=== PATIENT | male | born 2000 | race American Indian/Alaskan Native ===

== ENCOUNTER 2019-01-03 17:55 | Emergency (ER) | payer OTHER ==
--- NOTE | 2019-01-03 18:20 | Emergency Department Report ---
Chief Complaint: Medical Clearance Stated Complaint: MEDICAL CLEARANCE Time Seen by Provider: 01/03/19 18:07 - HPI History of Present Illness: This is a 18-year-old male that presents with a medical clearance for plasma donation. Patient stated he had a concussion 3 months ago and was told that he needs a medical clearance before donating plasma. Patient denies any headache, neck pain, shortness of breathe, fever, chills, chest pain. Patient stated he is asymptotic and denies any complaints. Denies any allergies or PMH. - Exam Physical Exam: A/O x3. Neuro exam within normal limits. Good strength in upper and lower ext ermiteis. EMOI and PERRLA. MSE screening note: Focused history and physical exam performed. Due to findings the following was ordered: ED Medical Decision Making - Medical Decision Making This is a 18-year-old male that presents with a medical clearance note. Patient is asymptotic and within normal neuro exam. Patient stated he was not sure why he was told to come to the ED for this. I explained to the patient that this is nonmedical emergency and there is other cheaper routes he can take. Registration approached patient for nonmedical emergency copay but patient refused. Patient was given strict instructions to observe for signs and symptoms and was instructed to return to the ED as soon as possible if symptoms due occurs. At the time of discharge, patient understand to discharge instructions and agreed to the ED discharge plan of care. ED Disposition for MSE Clinical Impression: General medical exam Disposition: MED SCREENING EXAM-LEFT Is pt being admited?: No Does the pt Need Aspirin: No Condition: Stable Additional Instructions: Follow-up with a primary care doctor in 3-5 days or if symptoms worsen and continue return to the emergency department as soon as possible. Referrals: PRIMARY CAREMD [Referring] - 3-5 Days SHOSHANA MERRITT MD [Staff Physician] - 3-5 Days [facility] [Outside] - 3-5 Days [facility] [Outside] - 3-5 Days
== END 2019-01-03 18:43 | disposition left against medical advice (07) ==
LOC: ED 17:55
DX: Z00.00 Encounter for general adult medical examination without abnormal findings (principal)
CPT/HCPCS: 99282

== ENCOUNTER 2021-06-28 04:51 | Emergency (ER) | payer OTHER ==
[2021-06-28] MEDS ORDERED: IBUPROFEN 800 MG TAB PO ONE (05:38)
[2021-06-28] MEDS ORDERED: FAMOTIDINE 20 MG TAB PO ONE (05:38)
[2021-06-28] MEDS ORDERED: predniSONE 20 MG TAB PO ONE (05:38)
[2021-06-28] MEDS ORDERED: diphenhydrAMINE 25 MG CAP PO ONE (05:38)
[2021-06-28 05:40] VITALS: BP 134/80
--- NOTE | 2021-06-28 05:44 | Emergency Department Report ---
ED Allergic Reaction HPI - General Stated complaint: PAINFUL HAND RASH Source: patient Mode of arrival: Ambulatory Limitations: No Limitations - History of Present Illness Initial Comments: Patient is a 21-year-old -[place] male with no past medical history who presents to the ED with complaint of acute onset persistent bilateral itchy hands with erythematous maculopapular rashes and pain for the last 8 hours. 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 Patient states that the itching over his hands, mild swelling and redness have been persistent and especially worse in the last 4 hours. Patient states that she is unable to sleep because of persistent pain and itchy hands. Patient denies dizziness, syncope, swollen lips or tongue, swollen throat, dysphagia, dysphonia, cough, wheezing, chest tightness, chest pain, abdominal pain, nausea, vomiting, diarrhea or facial pain, fever and chills. MD Complaint: allergic reaction, hives, other (Bilateral palm pain, itchy erythematous rash) -: Sudden, hour(s) (8) Exposure: other (Possible exposure to dogs) Symptoms: rash (Erythematous maculopapular itchy rashes on bilateral palms), itching (Bilateral hands), other (Bilateral hand pain and swelling with erythematous maculopapular rash). denies: facial swelling, lip swelling, difficulty swallowing, difficulty breathing, orolingual swelling, hoarseness, syncopy, dizziness, nausea, vomiting, abdominal pain Severity: severe Treatment Prior to Arrival: none Previous Allergy History: none - Related Data Previous Rx's Medication Instructions Recorded Last Taken Type Famotidine [Pepcid] 20 mg PO BID #30 tablet 06/28/21 Unknown Rx Ibuprofen [Motrin] 800 mg PO Q8HR PRN #30 tablet 06/28/21 Unknown Rx Prednisone [predniSONE 10 mg 10 mg PO .TAPER #21 tab.ds.pk 06/28/21 Unknown Rx (6-Day Pack, 21 Tabs)] diphenhydrAMINE [Benadryl CAP] 25 mg PO Q6HR PRN #30 capsule 06/28/21 Unknown Rx Allergies Allergy/AdvReac Type Severity Reaction Status Date / Time No Known Allergies Allergy Unverified 01/03/19 17:58 ED Review of Systems ROS: Stated complaint: PAINFUL HAND RASH Other details as noted in HPI Constitutional: denies: chills, fever, weakness Eyes: denies: eye pain, eye discharge, vision change ENT: denies: ear pain, throat pain, hearing loss, epistaxis, congestion Respiratory: denies: cough, shortness of breath, SOB with exertion, wheezing Cardiovascular: denies: chest pain, palpitations Endocrine: no symptoms reported Gastrointestinal: denies: abdominal pain, nausea, vomiting, diarrhea Genitourinary: denies: urgency, dysuria Musculoskeletal: denies: back pain, joint swelling, arthralgia Skin: rash (Bilateral itchy erythematous maculopapular rashes on palms with pain), change in color, pruritus. denies: lesions Neurological: denies: headache, weakness, paresthesias Psychiatric: denies: anxiety, depression Hematological/Lymphatic: denies: easy bleeding, easy bruising ED Past Medical Hx - Medications Home Medications: Home Medications Medication Instructions Recorded Confirmed Last Taken Type Famotidine [Pepcid] 20 mg PO BID #30 tablet 06/28/21 Unknown Rx Ibuprofen [Motrin] 800 mg PO Q8HR PRN #30 tablet 06/28/21 Unknown Rx Prednisone [predniSONE 10 mg 10 mg PO .TAPER #21 tab.ds.pk 06/28/21 Unknown Rx (6-Day Pack, 21 Tabs)] diphenhydrAMINE [Benadryl CAP] 25 mg PO Q6HR PRN #30 capsule 06/28/21 Unknown Rx ED Physical Exam - General Limitations: No Limitations General appearance: alert, in no apparent distress - Head Head exam: Present: atraumatic, normocephalic, normal inspection - Eye Eye exam: Present: normal appearance, PERRL, EOMI Pupils: Present: normal accommodation - ENT ENT exam: Present: normal exam, normal orophraynx, mucous membranes moist, TM's normal bilaterally, normal external ear exam - Neck Neck exam: Present: normal inspection, full ROM - Respiratory Respiratory exam: Present: normal lung sounds bilaterally. Absent: respiratory distress, wheezes, rales, rhonchi, stridor, chest wall tenderness, accessory muscle use, decreased breath sounds, prolonged expiratory - Cardiovascular Cardiovascular Exam: Present: regular rate, normal rhythm, normal heart sounds. Absent: systolic murmur, diastolic murmur, rubs, gallop - GI/Abdominal GI/Abdominal exam: Present: soft, normal bowel sounds. Absent: tenderness, guarding, hyperactive bowel sounds, hypoactive bowel sounds, organomegaly - Extremities Exam Extremities exam: Present: normal inspection, full ROM, tenderness (Palpable mildly tender bilateral palms due to erythematous maculopapular urticarial rashes), normal capillary refill. Absent: pedal edema, joint swelling, calf tenderness - Back Exam Back exam: Present: normal inspection, full ROM. Absent: tenderness, CVA tenderness (R), muscle spasm, paraspinal tenderness, vertebral tenderness, rash noted - Neurological Exam Neurological exam: Present: alert, oriented X3, CN II-XII intact, normal gait, reflexes normal - Psychiatric Psychiatric exam: Present: normal affect, normal mood, anxious - Skin Skin exam: Present: warm, dry, intact, rash (Erythematous maculopapular urticarial rashes bilaterally on palms with localized tenderness and mild swelling), erythema, urticaria ED Medical Decision Making - Medical Decision Making This is a 21-year-old -[place] male with no past medical history who presents to the ED with complaint of acute onset persistent bilateral itchy hands with erythematous maculopapular rashes and pain for the last 8 hours. 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 Patient states that the itching over his hands, mild swelling and redness have been persistent and especially worse in the last 4 hours. Patient states that she is unable to sleep because of persistent pain and itchy hands. In the ED, patient is alert and oriented x3 and is not in any distress. Patient is hemodynamically stable. Patient was treated in the ED for suspected acute allergic reaction due to exposure to dogs for which he is allergic to. Patient was also given pain medication. On reevaluation, patient's pain is well controlled medications. The itching also resolved. Patient was discharged home on medications and advised to follow-up with his primary care physician in 5 to 7 days for reevaluation or return to the ED immediately if symptoms get worse. - Differential Diagnosis allergic reaction; allergy to dogs; urticaria; angioedema; anaphylaxis Critical care attestation.: If time is entered above; I have spent that time in minutes in the direct care of this critically ill patient, excluding procedure time. ED Disposition Clinical Impression: Acute urticaria, Allergic to dogs Acute allergic reaction Qualifiers: Encounter type: initial encounter Qualified Code(s): T78.40XA - Allergy, unspecified, initial encounter Disposition: HOME / SELF CARE / HOMELESS Is pt being admited?: No Does the pt Need Aspirin: No Condition: Stable Instructions: Allergies, Adult, [id number], Hives, [id number], Rash, Adult, [id number] Additional Instructions: Your symptoms are likely due to acute allergic reaction possibly to dogs at your workplace. Therefore take medications as advised with food, drink plenty of fluids and follow-up with your primary care physician in 5 to 7 days for reevaluation. Return to the ED immediately if symptoms get worse. Prescriptions: diphenhydrAMINE [Benadryl CAP] 25 mg PO Q6HR PRN #30 capsule PRN Reason: Itching Ibuprofen [Motrin] 800 mg PO Q8HR PRN #30 tablet PRN Reason: Pain , Severe (7-10) Famotidine [Pepcid] 20 mg PO BID #30 tablet Prednisone [predniSONE 10 mg (6-Day Pack, 21 Tabs)] 10 mg PO .TAPER #21 tab.ds.pk Referrals: [facility] [Provider Group] - 3-5 Days Forms: Work/School Release Form(ED) Time of Disposition: 05:50 Print Language: DUTCH
== END 2021-06-28 10:47 | disposition home or self-care (01) ==
LOC: ED 04:51
DX: T78.40XA Allergy, unspecified, initial encounter (principal); L50.8 Other urticaria; J03.91 Acute recurrent tonsillitis, unspecified; Z79.899 Other long term (current) drug therapy; X58.XXXA Exposure to other specified factors, initial encounter
CPT/HCPCS: 99282; J7512